=== PATIENT | female | born 1945 | race Two or more races ===

== ENCOUNTER 2017-03-12 07:44 | Day surgery (SDC) | payer MEDICARE ==
[~2017-03-12] VITALS: Ht 162.6 cm; Wt 91.6 kg
[~2017-03-12 07:44] MED LIST: ALPR0.5T7 PO; ATOR40TA52 PO; HYDR-4683 PO; LISI40TA PO
[2017-03-12] MEDS ORDERED: LIDOCAINE 2%HCL (LOCAL ANESTH.) INJ 20ML MDV ONE (09:03)
[2017-03-12] MEDS ORDERED: fentaNYL CITRATE 100 MCG/2 ML VL ONE (09:04)
[2017-03-12] MEDS ORDERED: MIDAZOLAM HCL 1MG/1ML-2 ML VIAL ONE (09:04)
== END 2017-03-12 15:15 | disposition home or self-care (01) ==
LOC: CATH 07:44
PROVIDERS: ATTEND Specialist
DX: R55 Syncope and collapse (principal); Z88.5 Allergy status to narcotic agent; Z88.0 Allergy status to penicillin; I10 Essential (primary) hypertension; E78.00 Pure hypercholesterolemia, unspecified; Z90.12 Acquired absence of left breast and nipple; Z91.041 Radiographic dye allergy status; Z90.49 Acquired absence of other specified parts of digestive tract; Z85.3 Personal history of malignant neoplasm of breast
CPT/HCPCS: 93619; 93623; C1730; C1894; J1644; J2250; J3010; J7030; 99152; 99153

== ENCOUNTER 2020-11-16 12:40 | Inpatient (IN) | payer MEDICARE ==
[~2020-11-16] VITALS: Ht 162.6 cm; Wt 85.9 kg
[~2020-11-16 12:40] MED LIST changes: -HYDR-4683 PO; +HYDR-4833 PO; -LISI40TA PO; +LISI40TA11 PO
[2020-11-16 13:03] LABS: Basophils # (auto) 0 10 ^3/uL (0-0.2); Eosinophils # (auto) 0 10 ^3/uL (0-0.8); Hemoglobin 9.9 g/dL (12.2-16.2); Lymphocytes # (auto) 1.1 10 ^3/uL (0.4-5.4); Monocytes # (auto) 0.2 10 ^3/uL (0-1.3); Neutrophils # (auto) 1.7 10 ^3/uL (1.6-8.6); Red Cell Distribution Width 13.9 % (11.8-14.3)
[2020-11-16 13:05] LABS: Eosinophils % (auto) 1.6 % (0.0-7.0); Hematocrit 29.2 % (36.0-46.0); Lymphocytes % (auto) 36.8 % (10.0-50.0); Mean Corpuscular Hemoglobin 37.7 pg (28.0-32.0); Mean Corpuscular Volume 110.8 fL (80.0-100.0); Monocytes % (auto) 6.1 % (0.0-12.0); Neutrophils % (auto) 54.5 % (37.0-80.0); Red Blood Cells 2.63 10^6/uL (4.0-5.20); White Blood Cell 3.1 10^3/uL (4.4-10.8)
[2020-11-16 13:24] LABS: Albumin 3.7 g/dL (3.4-5.0); Anion Gap 9 (5-15); Blood Urea Nitrogen 26 mg/dL (7-18); Calcium 9.3 mg/dL (8.5-10.1); Carbon Dioxide 22 mmol/L (21-32); Chloride 107 mmol/L (98-107); Glucose 140 mg/dL (74-106); Potassium 3.2 mmol/L (3.5-5.1); Sodium 138 mmol/L (136-145)
[2020-11-16 13:29] LABS: Alanine Aminotransferase 21 U/L (13-56); Alkaline Phosphatase 46 U/L (45-117); Aspartate Aminotransferase 21 U/L (15-37); Bilirubin, Total 0.7 mg/dL (0.2-1.0); GFR African American 57 mL/min; GFR Non-African American 47 mL/min; Total Protein 6.7 g/dL (6.4-8.2)
[2020-11-16 13:30] LABS: BUN/Creatinine Ratio 21.8
[2020-11-16] MEDS ORDERED: MORPHINE SULFATE INJECTION 2 MG/ML SYRG IV ONE (16:00)
[2020-11-16] MEDS ORDERED: ONDANSETRON HCL 4 MG/2 ML VIAL IV ONE (16:00)
[2020-11-16] MEDS ORDERED: MORPHINE SULFATE 4 MG/ML SYR/VIAL IV PRN (16:15)
[2020-11-16] MEDS ORDERED: NITROGLYCERIN 0.4 MG SL TAB SL PRN (16:15)
[2020-11-16] MEDS ORDERED: MORPHINE SULFATE INJECTION 2 MG/ML SYRG IV PRN (16:15)
[2020-11-16] MEDS ORDERED: DOCUSATE SOD 100 MG CAP PO PRN (16:15)
[2020-11-16] MEDS ORDERED: ACETAMINOPHEN 325 MG TAB PO PRN (16:15)
[2020-11-16] MEDS ORDERED: HYDROcodone-ACET 10/325MG TAB PO ONE (16:15)
[2020-11-16 16:19] LABS: Urine Bacteria FEW /hpf (None Seen); Urine Blood Negative /uL (Negative); Urine Hyaline Cast MANY /lpf (0 - 2); Urine Mucus FEW (None Seen); Urine Specific Gravity 1.019 (1.001-1.035); Urine WBC 2 /hpf (0 - 5)
[2020-11-16] MEDS ORDERED: CIPROFLOXACIN HCL 500 MG TAB PO ONE (19:15)
[2020-11-16] MEDS ORDERED: POTASSIUM EFFERVESENT TAB 25 MEQ PO ONE (19:30)
[2020-11-16] MEDS: ONDANSETRON HCL 4 MG/2 ML VIAL IV PRN (21:37)
[2020-11-16 22:00] VITALS: BP 126/62
[2020-11-16] MEDS: HYDROcodone-ACET 5/325MG TAB PO PRN (22:29)
[2020-11-17] MEDS: HYDROcodone-ACET 5/325MG TAB PO PRN (03:56)
[2020-11-17] MEDS: ONDANSETRON HCL 4 MG/2 ML VIAL IV PRN (03:56)
[2020-11-17 05:25] VITALS: BP 105/42
[2020-11-17 06:18] LABS: Basophils # (auto) 0 10 ^3/uL (0-0.2); Basophils % (auto) 0.2 % (0.0-2.0); Eosinophils # (auto) 0 10 ^3/uL (0-0.8); Lymphocytes # (auto) 0.3 10 ^3/uL (0.4-5.4); Red Cell Distribution Width 13.9 % (11.8-14.3)
[2020-11-17 06:20] LABS: Eosinophils % (auto) 0.3 % (0.0-7.0); Hematocrit 29.7 % (36.0-46.0); Hemoglobin 10.2 g/dL (12.2-16.2); Lymphocytes % (auto) 9.2 % (10.0-50.0); Mean Corpuscular Hemoglobin 37.9 pg (28.0-32.0); Mean Corpuscular Hgb Conc. 34.4 g/dL (32.0-36.0); Monocytes # (auto) 0.1 10 ^3/uL (0-1.3); Monocytes % (auto) 5.5 % (0.0-12.0); Neutrophils # (auto) 2.3 10 ^3/uL (1.6-8.6); Neutrophils % (auto) 84.8 % (37.0-80.0); White Blood Cell 2.7 10^3/uL (4.4-10.8)
[2020-11-17 06:22] LABS: Albumin 3.2 g/dL (3.4-5.0); Calcium 8.8 mg/dL (8.5-10.1); Potassium 3.9 mmol/L (3.5-5.1)
[2020-11-17 06:27] LABS: BUN/Creatinine Ratio 26.8; Bilirubin, Total 1.3 mg/dL (0.2-1.0); Total Protein 6.1 g/dL (6.4-8.2)
[2020-11-17] MEDS ORDERED: HYDR-4072 PO (08:50)
[2020-11-17] MEDS ORDERED: LISI40TA11 PO (08:50)
[2020-11-17] MEDS ORDERED: CETI10TA2 PO (08:50)
[2020-11-17] MEDS ORDERED: ATOR40TA52 PO (08:50)
[2020-11-17] MEDS ORDERED: CLON0.1T PO (08:50)
[2020-11-17] MEDS ORDERED: HYDR25TA5 PO (08:50)
[2020-11-17] MEDS ORDERED: CHOL20007 PO (08:50)
[2020-11-17] MEDS ORDERED: LETR2.5T PO (08:52)
[2020-11-17] MEDS ORDERED: OMEP20TA PO (08:52)
[2020-11-17] MEDS ORDERED: FERR-20 PO (08:52)
[2020-11-17 09:00] VITALS: BP 98/69
[2020-11-17] MEDS ORDERED: LORazepam 2MG/ML-1ML VIAL IV PRN (09:15)
[2020-11-17] MEDS: ENOXAPARIN SOD 40 MG/0.4 ML SYRINGE SC SCH (10:22)
[2020-11-17] MEDS ORDERED: HYDROcodone-ACET 10/325MG TAB PO PRN (11:00)
[2020-11-17] MEDS ORDERED: ALPRAZolam 0.5 MG TAB PO PRN (11:00)
[2020-11-17 17:00] VITALS: BP 111/63
[2020-11-17] MEDS ORDERED: predniSONE 20 MG TAB PO ONE (20:00)
[2020-11-17] MEDS: ATORVASTATIN 20 MG TAB PO SCH (21:46)
[2020-11-17 22:20] VITALS: BP 117/51
[2020-11-18] MEDS ORDERED: predniSONE 20 MG TAB PO ONE ×2 (02:00→08:00)
[2020-11-18 05:09] VITALS: BP 98/58
[2020-11-18] MEDS ORDERED: OMNIPAQUE ORAL SOLN 500ml 12mg/ml PO ONE (07:33)
[2020-11-18 08:00] VITALS: BP 124/62
[2020-11-18] MEDS ORDERED: diphenhdrAMINE HCL 25 MG CAP PO ONE (08:00)
[2020-11-18 09:00] VITALS: BP 124/62
[2020-11-18] MEDS ORDERED: IOHEXOL 300 MG/ML 100ML BOTTLE IJ ONE (09:19)
[2020-11-18] MEDS ORDERED: IOHEXOL 350 MG/ML 100ML IJ ONE (09:22)
[2020-11-18] MEDS: ENOXAPARIN SOD 40 MG/0.4 ML SYRINGE SC SCH (10:13)
[2020-11-18 13:00] VITALS: BP 136/68
[2020-11-18] MEDS: metroNIDAZOLE 500MG/100ML 100 ML IV SCH ×2 (14:12→22:42)
[2020-11-18] MEDS: levoFLOXacin 500MG 100 ML IV SCH (15:40)
[2020-11-18 17:00] VITALS: BP 139/71
[2020-11-18] MEDS ORDERED: SUCRALFATE 1 GM/10 ML ORAL SUSP PO SCH (17:00)
[2020-11-18 22:00] VITALS: BP 140/67
[2020-11-18] MEDS: PANTOPRAZOLE 40 MG TAB PO SCH (22:42)
[2020-11-18] MEDS: ATORVASTATIN 20 MG TAB PO SCH (22:45)
[2020-11-19 05:00] VITALS: BP 125/49
[2020-11-19] MEDS: metroNIDAZOLE 500MG/100ML 100 ML IV SCH ×2 (06:10→15:00)
[2020-11-19 07:09] LABS: Hemoglobin 9.3 g/dL (12.2-16.2); White Blood Cell 3.4 10^3/uL (4.4-10.8)
[2020-11-19 07:12] LABS: Hematocrit 26.4 % (36.0-46.0); Mean Corpuscular Hemoglobin 37.8 pg (28.0-32.0); Mean Corpuscular Hgb Conc. 35.2 g/dL (32.0-36.0); Mean Corpuscular Volume 107.5 fL (80.0-100.0); Red Blood Cells 2.46 10^6/uL (4.0-5.20); Red Cell Distribution Width 13.4 % (11.8-14.3)
[2020-11-19 07:22] LABS: Basophils % (manual) 0 (0.0-2.0); Blast Cells 0; Eosinophils % (manual) 0 (0-7); Promyelocytes % 0; Reactive Lymphocytes 0
[2020-11-19 07:27] LABS: Potassium 3.5 mmol/L (3.5-5.1)
[2020-11-19 07:32] LABS: Albumin 2.5 g/dL (3.4-5.0); Calcium 7.8 mg/dL (8.5-10.1); Magnesium 1.9 mg/dL (1.6-2.6)
[2020-11-19 08:15] VITALS: BP 132/46
[2020-11-19 08:17] LABS: BUN/Creatinine Ratio 26.4; Bilirubin, Total 0.5 mg/dL (0.2-1.0); Phosphorus 1.9 mg/dL (2.5-4.90); Total Protein 5.9 g/dL (6.4-8.2)
[2020-11-19 08:28] LABS: Band Neutrophils % (manual) 10; Lymphocytes % (manual) 10 (10.0-50.0); Metamyelocytes % 1; Monocytes % (manual) 13 (0-12); Myelocytes % 1
[2020-11-19 09:04] VITALS: BP 118/46
[2020-11-19] MEDS: levoFLOXacin 500MG 100 ML IV SCH (09:55)
[2020-11-19] MEDS: ENOXAPARIN SOD 40 MG/0.4 ML SYRINGE SC SCH (09:55)
[2020-11-19] MEDS: PANTOPRAZOLE 40 MG TAB PO SCH (09:55)
[2020-11-19 13:00] VITALS: BP 132/46
[2020-11-19 13:46] VITALS: BP 132/46
[2020-11-19 16:53] VITALS: BP 109/56
== END 2020-11-19 18:40 | disposition home or self-care (01) | DRG 689 ==
LOC: EDBD 12:40 → ER 12:41 → TELE 16:14 → TELE-CENTR 21:43
PROVIDERS: ADMIT Nurse Practitioner; ATTEND Nurse Practitioner
DX: N39.0 Urinary tract infection, site not specified (principal); J18.9 Pneumonia, unspecified organism; D61.818 Other pancytopenia; C78.00 Secondary malignant neoplasm of unspecified lung; N17.9 Acute kidney failure, unspecified; C79.51 Secondary malignant neoplasm of bone; C50.919 Malignant neoplasm of unspecified site of unspecified female breast; R55 Syncope and collapse; Z20.822 Contact with and (suspected) exposure to COVID-19; E87.6 Hypokalemia; E78.5 Hyperlipidemia, unspecified; F41.9 Anxiety disorder, unspecified; R00.1 Bradycardia, unspecified; R07.0 Pain in throat; K52.9 Noninfective gastroenteritis and colitis, unspecified; I10 Essential (primary) hypertension; E86.9 Volume depletion, unspecified; Z79.899 Other long term (current) drug therapy; Z17.0 Estrogen receptor positive status [ER+]; Z80.0 Family history of malignant neoplasm of digestive organs; Z80.3 Family history of malignant neoplasm of breast; Z80.6 Family history of leukemia; Z88.0 Allergy status to penicillin; Z88.8 Allergy status to other drugs, medicaments and biological substances; Z88.1 Allergy status to other antibiotic agents; Z91.041 Radiographic dye allergy status; Z82.49 Family history of ischemic heart disease and other diseases of the circulatory system; Z85.3 Personal history of malignant neoplasm of breast; Z90.12 Acquired absence of left breast and nipple; Z90.49 Acquired absence of other specified parts of digestive tract; Z90.710 Acquired absence of both cervix and uterus; Z88.5 Allergy status to narcotic agent
CPT/HCPCS: 36415; 70450; 70551; 71045; 71260; 74177; 76536; 78582; 80053; 81001; 83735; 83880; 84100; 84443; 84484; 85007; 85025; 85027; 85379; 87040; 87426; 93005; 93306; 93970; 96374; 99291; G0378; J1956; J2405; J3490

== ENCOUNTER → 2021-04-04 | Outpatient (CLI) | payer MEDICARE ==
[~2021-04-04] MED LIST changes: +CETI10TA2 PO; +CHOL20007 PO; +CLON0.1T PO; +FERR-20 PO; +HYDR-4072 PO; -HYDR-4833 PO; +HYDR25TA5 PO; +LETR2.5T PO; +OMEP20TA PO
== END | disposition home or self-care (01) ==
LOC: LAB 07:26
PROVIDERS: ATTEND Nurse Practitioner Family
DX: N39.0 Urinary tract infection, site not specified (principal)
CPT/HCPCS: 87086

== ENCOUNTER 2022-10-03 09:01 | Emergency (ER) | payer MEDICARE ==
[~2022-10-03] VITALS: Ht 157.5 cm; Wt 90.9 kg
[~2022-10-03 09:01] MED LIST changes: -FERR-20 PO; +FERR325T24 PO; -LISI40TA11 PO; +LISI40TA16 PO
[2022-10-03 09:18] VITALS: BP 182/90; PULSE 69; RESP 20; O2SAT 95
[2022-10-03] MEDS ORDERED: SODIUM CHLORIDE 0.9% 1,000 ML IV ONE (09:30)
[2022-10-03 10:05] LABS: Basophils # (auto) 0 10 ^3/uL (0-0.2); Basophils % (auto) 0.4 % (0.0-2.0); Eosinophils # (auto) 0.1 10 ^3/uL (0-0.8); Eosinophils % (auto) 2.1 % (0.0-7.0); Hematocrit 39.9 % (36.0-46.0); Hemoglobin 12.8 g/dL (12.2-16.2); Lymphocytes # (auto) 1.3 10 ^3/uL (0.4-5.4); Lymphocytes % (auto) 20.2 % (10.0-50.0); Mean Corpuscular Hemoglobin 30.8 pg (28.0-32.0); Mean Corpuscular Hgb Conc. 32.1 g/dL (32.0-36.0); Mean Corpuscular Volume 96.1 fL (80.0-100.0); Monocytes # (auto) 0.6 10 ^3/uL (0-1.3); Monocytes % (auto) 9.1 % (0.0-12.0); Neutrophils # (auto) 4.3 10 ^3/uL (1.6-8.6); Neutrophils % (auto) 68.2 % (37.0-80.0); Nucleated Red Blood Cells % 0.1 %; Red Blood Cells 4.15 10^6/uL (4.0-5.20); Red Cell Distribution Width 13.7 % (11.8-14.3); White Blood Cell 6.3 10^3/uL (4.4-10.8)
[2022-10-03 10:59] LABS: INR 0.98 (0.9-1.15); Partial Thromboplastin Time 25.2 SEC (24.5-34.5); Prothrombin Time 10.3 sec (9.3-11.8)
[2022-10-03 11:38] LABS: Albumin 3.8 g/dL (3.4-5.0); BUN/Creatinine Ratio 27.3 (10.0-20.0); Bilirubin, Total 0.9 mg/dL (0.2-1.0); Calcium 8.7 mg/dL (8.5-10.1); Potassium 3.9 mmol/L (3.5-5.1); Total Protein 6.7 g/dL (6.4-8.2)
[2022-10-03] MEDS ORDERED: ACETAMINOPHEN 325 MG TAB PO PRN (12:45)
[2022-10-03] MEDS ORDERED: hydrALAZINE HCL 20 MG/ML VL IV PRN (12:45)
[2022-10-03] MEDS ORDERED: cloNIDine HCL 0.1 MG TAB PO SCH (12:45)
[2022-10-03] MEDS ORDERED: SODIUM CHLORIDE 0.9% 1,000 ML IV SCH (12:45)
[2022-10-03 12:54] LABS: Urine Bacteria FEW /hpf (None Seen); Urine Blood Negative /uL (Negative); Urine Clarity Clear (Clear); Urine Protein, UAD Negative (Negative); Urine Specific Gravity 1.006 (1.001-1.035); Urine Urobilinogen Normal (Negative); Urine WBC 3 /hpf (0 - 5); Urine pH 7.5 (5.0-8.0)
[2022-10-03 12:55] LABS: Urine Color Straw (Yellow)
[2022-10-03 13:06] LABS: Cholesterol 154 mg/dL (< 200); HDL Cholesterol 89 mg/dL (40-59); LDL Cholesterol 59 mg/dL (< 100); Triglycerides 95 mg/dL (< 150)
[2022-10-04] MEDS ORDERED: PATIENTS OWN MEDICATION (Ferrous Sulfate 325 MG) PO SCH (10:00)
[2022-10-04] MEDS ORDERED: LISINOPRIL 20 MG TAB PO SCH (10:00)
[2022-10-04] MEDS ORDERED: ENOXAPARIN SOD 40 MG/0.4 ML SYRINGE SC SCH (10:00)
[2022-10-04] MEDS ORDERED: FERROUS SULFATE 325mg EC TAB PO SCH (10:00)
[2022-10-04] MEDS ORDERED: PATIENTS OWN MEDICATION (Atorvastatin Calcium 1 TAB) PO SCH (10:00)
[2022-10-04] MEDS ORDERED: PANTOPRAZOLE 40 MG TAB PO SCH (10:00)
[2022-10-04] MEDS ORDERED: PATIENTS OWN MEDICATION (Lisinopril 1 TAB) PO SCH (10:00)
[2022-10-04] MEDS ORDERED: HCTZ 25 MG TAB PO SCH (10:00)
[2022-10-04] MEDS ORDERED: OMEPRAZOLE 10 MG PO SCH (10:00)
[2022-10-04] MEDS ORDERED: ATORVASTATIN 20 MG TAB PO SCH (22:00)
== END 2022-10-03 13:03 | disposition left against medical advice (07) ==
LOC: ER 09:01 → EDSEX 09:01 → EDBD 09:01 → UNDOADMIN 12:39 → OVERFLOW 12:39 → UNDODISIN 12:56 → OVERFLOW 13:03
DX: S09.90XA Unspecified injury of head, initial encounter (principal); I10 Essential (primary) hypertension; E78.5 Hyperlipidemia, unspecified; Z53.29 Procedure and treatment not carried out because of patient's decision for other reasons; Z90.710 Acquired absence of both cervix and uterus; Z79.01 Long term (current) use of anticoagulants; Z79.899 Other long term (current) drug therapy; Z80.9 Family history of malignant neoplasm, unspecified; W18.39XA Other fall on same level, initial encounter; Y93.89 Activity, other specified; Y92.89 Other specified places as the place of occurrence of the external cause; Y99.8 Other external cause status
CPT/HCPCS: 36415; 70450; 71045; 72125; 72192; 80053; 80061; 81001; 84443; 84484; 85025; 85610; 85730; 93005; 96360; 96361; 99285; J7030; G0378